=== PATIENT | male | born 1955 | race Caucasian/White ===

== ENCOUNTER → 2022-08-26 11:27 | Outpatient (CLI) | payer MEDICARE, SELFPAY ==
--- NOTE | ~2022-08-26 | CT_ITS ---
EXAMINATION: CT brain wo con DATE: 08/26/2022 11:45 INDICATION: Headache. TECHNIQUE: Computed tomography (CT) of the head was performed without intravenous contrast. The mA wa s adjusted according to patient size. Iterative reconstruction technique was employed. The dose-lengt h product was 674.51 mGy-cm. COMPARISON: None FINDINGS: There is no intracranial hemorrhage, acute infarction, or abnormal intracranial mass lesion . There are scattered areas of low attenuation in the cerebral white matter, which is within normal l imits for the patient's age. The ventricles are normal in size. There is mucosal thickening in the pa ranasal sinuses. There is thickening and sclerosis of the dalton of the maxillary sinuses. There are o ld fracture deformities of the nasal bones. The mastoid air cells are normal. IMPRESSION: 1. Normal aging brain. Reviewed, dictated and finalized at location A. IMPRESSION: 1. Normal aging brain.
== END ==
PROVIDERS: PCP Family Medicine; Visit Provider Physician Assistant Medical
DX: R51.9 Headache, unspecified (principal)
CPT/HCPCS: 70450

== ENCOUNTER → 2022-08-31 08:22 | Outpatient (CLI) | payer MEDICARE, SELFPAY ==
--- NOTE | ~2022-08-31 | US_ITS ---
EXAMINATION: US abdomen limited DATE: 08/31/2022 09:04 INDICATION: Elevated liver enzymes TECHNIQUE: Multiple grayscale and Doppler ultrasound images of the abdomen were obtained. COMPARISON: None FINDINGS: The pancreatic head and body are normal in appearance. The pancreatic tail is not visualized. Liver has normal echogenicity and contour, with a smooth surface. No liver lesion identified. No intrahepat ic biliary duct dilation suspected. Portal venous flow was seen in the hepatopetal, normal direction and has normal Doppler waveform. The gallbladder is normal in appearance. There is no cholelithiasis . The common bile duct measures 5 mm, which is normal. Sonographic Campbell sign was reported as negati ve by the kapok and cotton machine operator. Visualized portion of the proximal inferior vena cava is normal. IMPRESSION: 1. Normal right upper quadrant ultrasound. Reviewed, dictated and finalized at location A.
== END ==
PROVIDERS: PCP Family Medicine; Visit Provider Physician Assistant Medical
DX: R79.89 Other specified abnormal findings of blood chemistry (principal)
CPT/HCPCS: 76705

== ENCOUNTER 2022-11-21 16:37 | Emergency (ER) | payer MEDICARE, SELFPAY ==
--- NOTE | 2022-11-21 16:48 | ED.GENADULT ---
HPI - General Adult General Chief complaint: Upper Respiratory Infection Stated complaint: headache Time Seen by Provider: 11/21/22 16:47 Source: patient Mode of arrival: ambulatory Limitations: no limitations History of Present Illness HPI narrative: 57-year-old male patient presents to the [facility] with complaints of headache, fatigue and pressure to the face and head for the past week. Patient states he had something similar to this happened around [facility] and states that he had up getting the CT and was told that there was fluid and infection in the sinus cavities any is treated for sinus infection. Patient does have history of 3 sinus surgeries in the past. Patient states he used to get sinus infections a lot. Patient is on a daily antihistamine and has been taking Mucinex and Sudafed for the symptoms that within the past week. Patient states he has been running of low-grade temperature of around 99-100. Denies any productive cough, chest pain, shortness of breath or any other concerning symptoms. Related Data Allergies Allergy/AdvReac Type Severity Reaction Status Date / Time No Known Allergies Allergy Verified 11/21/22 16:57 Review of Systems Review of Systems: CONSTITUTIONAL: Denies fever, chills, or sweats. EYES: Denies visual changes, redness, or discharge. ENT: Denies rhinorrhea, congestion, sore throat, or otalgia. CARDIOVASCULAR: Denies chest pain, palpitations, or edema. RESPIRATORY: Denies cough or dyspnea. GASTROINTESTINAL: Denies abdominal pain, nausea, vomiting, or diarrhea. GENITOURINARY: Denies dysuria or hematuria. SKIN: Denies rash or itching. MUSCULOSKELETAL: Denies back pain, joint pain, or myalgia. NEUROLOGIC: Denies headache, numbness, or weakness. PSYCHIATRIC: Denies anxiety or depression. [facility] Past Medical History Medical History Chronic sinusitis Colon cancer screening Degenerative disc disease, cervical Impacted cerumen, right ear Mixed hyperlipidemia Obstructive sleep apnea Pre-diabetes Primary hypertension Situational anxiety Sleep apnea Family History Family History Mother Breast cancer Alzheimer disease Father No problems noted. Sibling Acute myocardial infarction Sibling Breast cancer Social History Social History (Reviewed 11/21/22 @ 17:21 by SOFIYA Olivo Social History: Quit over 20 years ago, 5 pack year Smoking status: Former smoker Tobacco type: cigarettes Second hand tobacco smoke exposure: Yes Alcohol intake: current Drinks per week: 3 Alcohol use details: 3 Beers a week on average Substance use: never Substance use type: does not use Lack of Transportation: No Lack of Food: Never True Current Housing: I Have Housing Concerned About Future Housing: No Difficulty Paying Gas/Electric Bills: No Difficulty Paying for Meds: No Currently Unemployed: No Education: High School Diploma/GED Difficulty w/ Childcare or Family Care: No Living arrangements: with family Occupation/Education: retired Gender identity (if verbalized by the patient): Male Sexual Orientation (if Verbalized by the Patient): Straight or Heterosexual Spiritual care concerns: No Agree to blood products: Yes Comments At the time of my signature I agree with nursing past medical history, surgical, social, and family history. There is no relevant family history pertinent to the presenting complaint. Exam Narrative: GENERAL: Well-appearing, well-nourished, and in no acute distress. HEAD: Normocephalic, atraumatic. Slight tenderness noted on frontal sinuses on palpation. EYES: PERRLA and EOMI. ENT: Nares clear, no rhinorrhea or epistaxis. Mucous membranes moist. Posterior pharynx no erythema, tonsillar enlargement, exudates or lesions present. Bilateral TMs are clear no erythema o
[2022-11-21 16:53] VITALS: BP 141/70; PULSE 100; RESP 18; TEMP 36.5; O2SAT 96
== END 2022-11-21 17:19 | disposition home or self-care (01) ==
PROVIDERS: Emergency Provider Nurse Practitioner Family; PCP Family Medicine
DX: J01.91 Acute recurrent sinusitis, unspecified (principal); R51.9 Headache, unspecified; Z87.891 Personal history of nicotine dependence; E78.2 Mixed hyperlipidemia; M50.30 Other cervical disc degeneration, unspecified cervical region; R73.03 Prediabetes; I10 Essential (primary) hypertension
CPT/HCPCS: 99213; G0463

== ENCOUNTER 2023-04-18 01:10 | Day surgery (SDC) | payer MEDICARE, SELFPAY ==
[2023-03-31 13:20] VITALS: BMI 32.3
--- NOTE | 2023-04-15 08:52 | SUR.PREOP ---
Patient called regarding upcoming procedure. Reviewed preop instructions, appointment times, and procedure prep.
--- NOTE | 2023-04-15 14:25 | PM.HPGS ---
History of Present Illness History of Present Illness Consent: Risks, benefits, and alternatives have been discussed and questions answered. Patient agrees to proceed with procedure. Chief complaint: hx of colon polyps Narrative: Low Juárez is a 68 year old male Referred for colon cancer screening. He has a history of a tubular adenoma removed over 5 years ago. Review of Systems Review of Systems: All systems reviewed & are unremarkable except as noted in HPI and below PMFSH Past Medical History Medical History Chronic sinusitis Colon cancer screening Degenerative disc disease, cervical Impacted cerumen, right ear Mixed hyperlipidemia Obstructive sleep apnea Pre-diabetes Primary hypertension Situational anxiety Sleep apnea Family History Family History Mother Breast cancer Alzheimer disease Father No problems noted. Sibling Acute myocardial infarction Sibling Breast cancer Social History Social History Social History: Quit over 20 years ago, 5 pack year Smoking packs per day: 0.25 Smoking cigarettes per day: 5.0 Years smoked: 15 Smoking pack-years: 3.75 Smoking status: Former smoker Tobacco type: cigarettes Second hand tobacco smoke exposure: Yes Alcohol intake: current Drinks per week: 4 Alcohol use details: 3 Beers a week on average Substance use: never Substance use type: does not use Lack of Transportation: No Lack of Food: Never True Current Housing: I Have Housing Concerned About Future Housing: No Difficulty Paying Gas/Electric Bills: No Difficulty Paying for Meds: No Currently Unemployed: No Education: High School Diploma/GED Difficulty w/ Childcare or Family Care: No Living arrangements: with family Occupation/Education: retired Gender identity (if verbalized by the patient): Male Sexual Orientation (if Verbalized by the Patient): Straight or Heterosexual Spiritual care concerns: No Agree to blood products: Yes Meds Home Medications and Allergies Home Medications Medication Instructions Recorded Confirmed Type lisinopril 10 mg tablet 10 mg PO DAILY #90 tabs 08/26/22 04/18/23 Rx sildenafil (pulm.hypertension) 20 20 mg PO ONCE PRN sexual activity 10/19/22 04/18/23 Rx mg tablet #30 tabs metformin 500 mg tablet 500 mg PO BID #180 tabs 11/10/22 04/18/23 Rx rosuvastatin 5 mg tablet 5 mg PO DAILY #90 tabs 12/30/22 04/18/23 Rx Allergies Allergy/AdvReac Type Severity Reaction Status Date / Time No Known Allergies Allergy Verified 04/18/23 06:21 Exam Const: General: alert Orientation/consciousness: patient oriented x3 Resp: Auscultation: clear to auscultation bilaterally Cardio: Rhythm: regular rhythm GI: GI Palp: Yes Soft to palpation and No Tenderness to palpation present (GI) Neuro: General: patient oriented x3 Assessment and Plan Assessment and plan (1) Colon cancer screening: Code(s): Z12.11 - Encounter for screening for malignant neoplasm of colon Status: Acute Assessment and Plan: Colonoscopy with possible biopsy or polypectomy or cautery or injection of substances.
[2023-04-18 06:15] VITALS: BP 147/77; PULSE 70; RESP 18; TEMP 35.8; O2SAT 98; BMI 33.0
[2023-04-18] MEDS: LACTATED RINGERS 1,000 ML 150 ML IV CONT (06:33)
[2023-04-18 06:35] LABS: Glucose Point of Care 110 mg/dl (65-105)
--- NOTE | 2023-04-18 07:18 | WPDANESEPPF ---
Anes - Initial Pre Proc Eval Procedure: Operation Date: 04/18/23 07:30 Proposed Procedures p Colonoscopy - Lee Tam MD Date/Time: 04/18/23 07:18 Surgeon: Lee Tam MD Pre Op Diagnosis: hx of colon polyps Patient Data Age: 68 Gender: M Height: 1.8 m Weight: 107.4 kg Last Vital Signs Temp 96.5 F L 04/18/23 06:15 Pulse 70 04/18/23 06:15 Resp 18 04/18/23 06:15 BP 147/77 H 04/18/23 06:15 Pulse Ox 98 04/18/23 06:15 O2 Del Method Room Air 04/18/23 06:15 Allergies Allergy/AdvReac Type Severity Reaction Status Date / Time No Known Allergies Allergy Verified 04/18/23 06:21 Home Medications Medication Instructions Recorded Confirmed Type lisinopril 10 mg tablet 10 mg PO DAILY #90 tabs 08/26/22 04/18/23 Rx sildenafil (pulm.hypertension) 20 20 mg PO ONCE PRN sexual activity 10/19/22 04/18/23 Rx mg tablet #30 tabs metformin 500 mg tablet 500 mg PO BID #180 tabs 11/10/22 04/18/23 Rx rosuvastatin 5 mg tablet 5 mg PO DAILY #90 tabs 12/30/22 04/18/23 Rx Laboratory Tests 04/18/23 06:27 POC Capillary Glucose 110 H mg/dl (65-105) Patient hx anesthesia problems: none Family hx anesthesia problems: none Results Review: All pre-operative results and documents have been reviewed as part of the pre-operative evaluation. [facility] Past Medical History Medical History Chronic sinusitis Colon cancer screening Degenerative disc disease, cervical Impacted cerumen, right ear Mixed hyperlipidemia Obstructive sleep apnea Pre-diabetes Primary hypertension Situational anxiety Sleep apnea Family History Family History Mother Breast cancer Alzheimer disease Father No problems noted. Sibling Acute myocardial infarction Sibling Breast cancer Social History Social History Social History: Quit over 20 years ago, 5 pack year Smoking packs per day: 0.25 Smoking cigarettes per day: 5.0 Years smoked: 15 Smoking pack-years: 3.75 Smoking status: Former smoker Tobacco type: cigarettes Second hand tobacco smoke exposure: Yes Alcohol intake: current Drinks per week: 4 Alcohol use details: 3 Beers a week on average Substance use: never Substance use type: does not use Lack of Transportation: No Lack of Food: Never True Current Housing: I Have Housing Concerned About Future Housing: No Difficulty Paying Gas/Electric Bills: No Difficulty Paying for Meds: No Currently Unemployed: No Education: High School Diploma/GED Difficulty w/ Childcare or Family Care: No Living arrangements: with family Occupation/Education: retired Gender identity (if verbalized by the patient): Male Sexual Orientation (if Verbalized by the Patient): Straight or Heterosexual Spiritual care concerns: No Agree to blood products: Yes Anes - Eval Final PreProcedure Day of Procedure 04/18/23 07:18 Patient weight: obese Heart: regular rate and rhythm Lungs: clear to auscultation Airway: Mallampati scale class II Neurological: alert and oriented Last oral intake: >/= 8 hours ASA classification: III Emergent: no Anesthetic plan: proceed Anesthesia type and monitoring: general GIVS and standard monitoring Results Review: All pre-operative results and documents have been reviewed as part of the pre-operative evaluation. Informed Consent: The patient's anesthetic plan and its attendant risks and benefits were discussed with the patient/family/POA. Questions were solicited and answers provided to the satisfaction of the patient/family/POA.
[2023-04-18 07:46] VITALS: BP 141/86; PULSE 82; RESP 18; O2SAT 98
[2023-04-18 07:56] VITALS: BP 129/85; PULSE 70; RESP 22; O2SAT 98
[2023-04-18 08:06] VITALS: BP 128/81; PULSE 61; RESP 16; O2SAT 98
== END 2023-04-18 08:14 | disposition home or self-care (01) ==
PROVIDERS: PCP Family Medicine; Visit Provider Internal Medicine Gastroenterology
PROC: 0DJD8ZZ Inspection of Lower Intestinal Tract, Via Natural or Artificial Opening Endoscopic (ICD-10-PCS; CPT 45378; principal; 2023-04-18 07:30)
DX: Z12.11 Encounter for screening for malignant neoplasm of colon (principal); K64.8 Other hemorrhoids; K57.30 Diverticulosis of large intestine without perforation or abscess without bleeding; I10 Essential (primary) hypertension; E78.2 Mixed hyperlipidemia; R73.03 Prediabetes; G47.33 Obstructive sleep apnea (adult) (pediatric); G47.30 Sleep apnea, unspecified; J32.9 Chronic sinusitis, unspecified; Z87.891 Personal history of nicotine dependence; F43.22 Adjustment disorder with anxiety; E66.9 Obesity, unspecified; Z68.33 Body mass index [BMI] 33.0-33.9, adult; Z86.010 Personal history of colon polyps; Z80.3 Family history of malignant neoplasm of breast; Z82.49 Family history of ischemic heart disease and other diseases of the circulatory system; Z79.84 Long term (current) use of oral hypoglycemic drugs
CPT/HCPCS: G0105; 82948; J2704; J7120

== ENCOUNTER 2024-03-13 14:48 | Emergency (ER) | payer MEDICARE, SELFPAY ==
--- NOTE | ~2024-03-13 | XR_ITS ---
EXAMINATION: XR chest 2V DATE: 03/13/2024 15:32 INDICATION: Cough. TECHNIQUE: Frontal and lateral views of the chest were obtained. COMPARISON: None. FINDINGS: There is no pneumonia, pleural effusion, or pneumothorax. The heart size is normal. IMPRESSION: 1. No acute cardiopulmonary disease. Reviewed, dictated and finalized at location B.
[2024-03-13 15:03] VITALS: BP 138/67; PULSE 92; RESP 16; TEMP 36.6; O2SAT 95
--- NOTE | 2024-03-13 15:20 | ED.URI ---
HPI - URI/Sore Throat General Chief Complaint: Upper Respiratory Infection Stated Complaint: congestion Time Seen by Provider: 03/13/24 15:20 Source: patient and RN notes reviewed Mode of arrival: ambulatory Limitations: no limitations History of Present Illness HPI Narrative: 68-year-old male presents with concern for productive cough, nasal congestion, chest congestion. Reports he had a similar sickness a few weeks ago that improved but now he is sick again. He reports he was better for about a week. He denies fever, body aches, chills, sweats. MD elicited complaint: cough Related Data Allergies Allergy/AdvReac Type Severity Reaction Status Date / Time No Known Allergies Allergy Verified 03/13/24 15:27 Review of Systems Review of Systems: CONSTITUTIONAL: Denies malaise, chills, sweats, or fever. EYES: Denies visual changes, redness, or discharge. ENT: Reports rhinorrhea, congestion. Denies sinus pain, otalgia and sore throat. CARDIOVASCULAR: Denies chest pain, palpitations, or edema. RESPIRATORY: Reports productive cough. Denies dyspnea. GASTROINTESTINAL: Denies abdominal pain, nausea, vomiting, diarrhea SKIN: Denies rash or itching. MUSCULOSKELETAL: Denies myalgia. NEUROLOGIC: Reports headache. All systems reviewed & are unremarkable except as noted in HPI and below PMFSH Past Medical History Medical History Chronic sinusitis Colon cancer screening Degenerative disc disease, cervical Impacted cerumen, right ear Mixed hyperlipidemia Obstructive sleep apnea Pre-diabetes Primary hypertension Situational anxiety Sleep apnea Family History Family History Mother Breast cancer Alzheimer disease Father No problems noted. Sibling Acute myocardial infarction Sibling Breast cancer Social History Social History Social History: Quit over 20 years ago, 5 pack year Smoking packs per day: 0.25 Smoking cigarettes per day: 5.0 Years smoked: 15 Smoking pack-years: 3.75 Smoking status: Former smoker Tobacco type: cigarettes Second hand tobacco smoke exposure: Yes Alcohol intake: current Drinks per week: 4 Alcohol use details: 3 Beers a week on average Substance use: never Substance use type: does not use Lack of Transportation: No Lack of Food: Never True Current Housing: I Have Housing Concerned About Future Housing: No Difficulty Paying Gas/Electric Bills: No Difficulty Paying for Meds: No Currently Unemployed: No Education: High School Diploma/GED Difficulty w/ Childcare or Family Care: No Living arrangements: with family Occupation/Education: retired Gender identity (if verbalized by the patient): Male Sexual Orientation (if Verbalized by the Patient): Straight or Heterosexual Spiritual care concerns: No Agree to blood products: Yes Comments At time of signature, agree with nursing past medical, surgical, social and family history. There is no relevant family history pertinent to the presenting complaint Exam Narrative: GENERAL: Well-appearing, well-nourished, and in no acute distress. HEAD: Normocephalic EYES: PERRLA, conjunctivae clear ENT: Nares clear. Mucous membranes moist. TM pearly ma with sharp light reflex bilaterally; no tragal tenderness. Oropharynx not erythematous without lesions. Tonsils not enlarged and without exudate, no drooling, no hoarseness, no trismus, uvula midline. NECK: Supple. No lymphadenopathy CHEST: Clear to auscultation, breath sounds equal. No wheezing, rhonchi, rales, or stridor. No respiratory distress, speaks in full sentences. Cough note HEART: Regular rate and rhythm. No murmur heard. SKIN: Warm, dry, no rash. NEURO: Alert and oriented x3. PSYCH: Normal mood and affect Course Course Emergency Course: Patient is aware of diagnosis, understands and agrees to treatment plan. Anticipatory guidance given. Patient agrees to follow-up as directed and is aware of reasons to seek care at the emergency department. Portions of this record may have been created with voice recognition software Level of Care: Express Care Visit Vital Signs Vital signs: Vital Signs Temperature 97.8 F 03/13/24 15:03 Pulse Rate 92 03/13/24 15:03 Respiratory Rate 16 03/13/24 15:03 Blood Pressure 138/67 03/13/24 15:03 Pulse Oximetry 95 03/13/24 15:03 Oxygen Delivery Room Air 03/13/24 15:03 Temperature 97.8 F 03/13/24 15:03 Pulse Rate 92 03/13/24 15:03 Respiratory Rate 16 03/13/24 15:03 Blood Pressure 138/67 03/13/24 15:03 Pulse Oximetry 95 03/13/24 15:03 Oxygen Delivery Room Air 03/13/24 15:03 Reviewed. MDM - URI/Sore Throat MDM Narrative Medical decision making narrative: Differential diagnosis considered: Puri virus, strep pharyngitis, allergic rhinitis, upper respiratory tract infection, sinusitis, rhinosinusitis, nasopharyngitis. viral pharyngitis, otitis media, otitis externa, pneumonia, bronchitis, viral cough syndrome, viral syndrome, and influenza. Exam findings show no acute concerns or changes; patient is non-toxic appearing and is in no distress. Patient is appropriate for outpatient treatment and follow-up. Lab Data Attestation: I reviewed the patient's lab results. Imaging Data My impression: Images reviewed, interpreted by radiologist, agree, see report. Radiologist's impression: EXAMINATION: XR chest 2V DATE: 03/13/2024 15:32 INDICATION: Cough. TECHNIQUE: Frontal and lateral views of the chest were obtained. COMPARISON: None. FINDINGS: There is no pneumonia, pleural effusion, or pneumothorax. The heart size is normal. IMPRESSION: 1. No acute cardiopulmonary disease. Critical Care Time Critical Care Time Critical Care Time: No Discharge Plan Discharge Clinical Impression: Bronchitis Patient Disposition: Home, Self-Care Condition: Stable Instructions: Acute Bronchitis (ED) Additional Instructions: Viral illness may last between 7-21 days; antibiotics do not cure viral illness and are NOT recommended at this time. Recommend antihistamine such as Benadryl at night time and Zyrtec or Aline during the day Cough syrup may cause drowsiness; avoid driving or take it at night time. Also, recommend symptomatic treatment includes: rest, fluids, and increase humidity of the air at home. Recommend Acetaminophen as directed on the bottle to reduce fever, pain, headache. Avoid smoking/second-hand smoke. Please schedule a follow-up visit with your personal physician for further evaluation and treatment within 3-5days. If your symptoms persist, change or worsen significantly before you can contact your personal physician then please, without delay, go to the emergency department for further evaluation. Prescriptions: New methylprednisolone [Medrol (Luciano)] 4 mg tablets,dose pack See Rx Instructions .ROUTE .COMPLEX Qty: 21 0RF Rx Instructions: orally per package directions dextromethorphan-guaifenesin [Mucinex DM] 60-1,200 mg tablet extended release 12 hr 1 tablet PO Q12H Qty: 12 0RF No Action sildenafil (pulm.hypertension) 20 mg tablet 20 mg PO ONCE PRN (Reason: sexual activity) Qty: 30 0RF Rx Instructions: administer doses at least 4-6 hours apart lisinopril 10 mg tablet 10 mg PO DAILY Qty: 90 3RF metformin 500 mg tablet 500 mg PO BID Qty: 180 3RF rosuvastatin 5 mg tablet 5 mg PO DAILY Qty: 90 1RF Follow-up/Referrals: Niurka Wallace MD [Primary Care Provider] - Time of Disposition: 15:42
== END 2024-03-13 15:45 | disposition home or self-care (01) ==
PROVIDERS: Emergency Provider Nurse Practitioner; PCP Family Medicine
DX: J40 Bronchitis, not specified as acute or chronic (principal); Z87.891 Personal history of nicotine dependence; E78.2 Mixed hyperlipidemia; I10 Essential (primary) hypertension; R73.03 Prediabetes; M50.30 Other cervical disc degeneration, unspecified cervical region
CPT/HCPCS: 71046; 99213; G0463

== ENCOUNTER 2024-12-18 13:48 | Outpatient (CLI) | payer MEDICARE, SELFPAY ==
--- OUTSIDE RECORDS SUMMARY | 2024-12-18 13:53 | XMS_ITS | Clinical Summary ---
Author Organization [facility] Address [address] [address] Care Team Providers Care Surgical Pathologist Name Role Phone Benito Sherwood Primary Care Provider Julito Cox DO Unavailable Source Comments [facility],non-owned Affiliates and Associated Physician Practices is amultiple site organization consisting of ambulatory clinics and hospital sitesin [place], [place], [place] and [place]. This disclosure is being madepursuant to the Care Everywhere program and may not contain all information available regarding this patient. Last updated 18.[facility] Allergies Active Allergy Reactions Criticality Noted Date Comments Erythromycin GI Discomfort 07/09/2020 Medications * Be aware that medications may not be up to date on this document. Alwaysverify current medications with the patient. 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 Gender Identity Not on file Sexual Orientation Not on file Last Filed Vital Signs Vital Sign Reading Time Taken Comments Blood Pressure 140/80 06/13/2019 3:52 PM BATCH AND FURNACE OPERATOR Pulse 87 06/13/2019 3:52 PM BATCH AND FURNACE OPERATOR Temperature 36.7 C (98.1 F) 06/13/2019 3:52 PM BATCH AND FURNACE OPERATOR Respiratory Rate 18 06/13/2019 3:52 PM BATCH AND FURNACE OPERATOR Oxygen Saturation 98% 06/13/2019 3:52 PM BATCH AND FURNACE OPERATOR Inhaled Oxygen Concentration - - Weight 108.4 kg (239 lb) 06/13/2019 3:52 PM BATCH AND FURNACE OPERATOR Height 180.3 cm (5' 11) 06/13/2019 3:52 PM BATCH AND FURNACE OPERATOR Body Mass Index 33.33 06/13/2019 3:52 PM BATCH AND FURNACE OPERATOR Plan of Treatment Health Maintenance Due Date Last Done Comments COLOGUARD (AGES 45-75) - COLON CA SCREENING 1957 COLON MONITORING 1957 COLONOSCOPY - COLON CA SCREENING 1957 CT COLONOGRAPHY - COLON CA SCREENING 1957 Colorectal Cancer Screening 1957 FIT - COLON CA SCREENING 1957 FLEX SIG - COLON CA SCREENING 1957 HEPATITIS C SCREENING 03/23/1975 DTAP/TDAP/TD VACCINES (1 - Tdap) 1976 PNEUMOCOCCAL VACCINE 50+ (1 of 2 - PCV) 1976 ZOSTER VACCINE (1 of 2) 2007 AAA SCREENING 2022 COVID-19 VACCINE (1 - season) 2024 DEPRESSION SCREENING 05/16/2024 INFLUENZA VACCINE (#1) 2025 0, 02/25/2018, 03/10/2017, Additional history exists Respiratory Syncytial Virus (RSV) Vaccine Pt: or over 60 yrs (1 - 1-dose 75+ series) 2032 HEPATITIS B VACCINE Aged Out No longe r eligible based on patient's age to complete this topic HIB VACCINE Aged Out No longer eligi ble based on patient's age to complete this topic HPV VACCINE Aged Out No longer eligi ble based on patient's age to complete this topic MENINGOCOCCAL (Group B) VACCINE SHARED DECISION-MAKING Aged Out No longer eligible based on patient's age to complete this topic MENINGOCOCCAL GROUPS A/C/Y/W VACCINE Aged Out No longer eligible based on patient's age to complete this topic Insurance [employer] Care Teams Surgical Pathologist Relationship Specialty Start Date End Date Benito Sherwood Update Information PCP - General 06/13/19 Julito Godwin DO Update Information Hand Surgery 07/09/20
== END 2024-12-18 13:49 | disposition home or self-care (01) ==
LOC: ANHAUDIO 13:48
PROVIDERS: PCP Family Medicine; Visit Provider Otolaryngology
DX: H90.3 Sensorineural hearing loss, bilateral (principal); R42 Dizziness and giddiness; H93.13 Tinnitus, bilateral; H74.8X1 Other specified disorders of right middle ear and mastoid; Z82.2 Family history of deafness and hearing loss
CPT/HCPCS: 92557; 92567

== ENCOUNTER 2025-01-16 11:02 | Emergency (ER) | payer MEDICARE, SELFPAY ==
[2025-01-16 11:12] VITALS: BP 137/79; PULSE 70; RESP 16; TEMP 36.3; O2SAT 100
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
== END 2025-01-16 11:50 | disposition home or self-care (01) ==
PROVIDERS: Emergency Provider Nurse Practitioner Family
DX: S16.1XXA Strain of muscle, fascia and tendon at neck level, initial encounter (principal); I10 Essential (primary) hypertension; Z87.891 Personal history of nicotine dependence; X58.XXXA Exposure to other specified factors, initial encounter
CPT/HCPCS: 99213; G0463

== ENCOUNTER 2025-01-22 14:49 | Outpatient (CLI) | payer MEDICARE, SELFPAY ==
--- NOTE | ~2025-01-22 | XR_ITS ---
Wrist Indication: Comparison: Technique: Findings: No fracture or dislocation. Soft tissues and joint spaces intact. Impression: 1. No acute process. EXAMINATION: [id number], 01/22/2025 14:55 CDT HISTORY: M54.2 - Cervicalgia COMPARISON: No comparisons available. Technique: 3 views Findings: The vertebral heights are intact. No fracture or subluxation. The disc heights are intact. Soft tissues unremarkable Impression: No acute abnormality. Reviewed, dictated and finalized at location A. Impression: 1. No acute process. EXAMINATION: [id number], 01/22/2025 14:55 CDT HISTORY: M54.2 - Cervicalgia COMPARISON: No comparisons available. Technique: 3 views Findings: The vertebral heights are intact. No fracture or subluxation. The disc heights are intact. Soft tissues unremarkable Impression: No acute abnormality.
--- OUTSIDE RECORDS SUMMARY | 2025-01-22 16:18 | XMS_ITS | Clinical Summary ---
Author Organization [facility] Address [address] [place] [address] Care Team Providers Care Conventions Reservationist Name Role Phone Benito Sherwood Primary Care Provider Julito Cox DO Unavailable [phone] Source Comments [facility],non-owned Affiliates and Associated Physician Practices is amultiple site organization consisting of ambulatory clinics and hospital sitesin [place], [place], [place] and [place]. This disclosure is being madepursuant to the Care Everywhere program and may not contain all information available regarding this patient. Last updated 18.[facility] Allergies Active Allergy Reactions Criticality Noted Date [...] on file Legal Sex Male 6:20 AM [employer] Gender Identity Not on file Sexual Orientation Not on file Last Filed Vital Signs Vital Sign Reading Time Taken Comments Blood Pressure 140/80 06/13/2019 3:52 PM [employer] [employer] Pulse 87 06/13/2019 3:52 PM [employer] [employer] Temperature 36.7 C (98.1 F) 06/13/2019 3:52 PM [employer]ICE Respiratory Rate 18 06/13/2019 3:52 PM [employer] [employer] Oxygen Saturation 98% 06/13/2019 3:52 PM [employer]ICE Inhaled Oxygen Concentration - - Weight 108.4 kg (239 lb) 06/13/2019 3:52 PM [employer] Height 180.3 cm (5' 11) 06/13/2019 3:52 PM [employer] Body Mass Index 33.33 06/13/2019 3:52 PM [employer] Plan of Treatment Health Maintenance Due Date [...] (1 of 2) 2007 AAA SCREENING 2022 DEPRESSION SCREENING 05/16/2024 COVID-19 VACCINE (1 - 2023- season) 2025 INFLUENZA VACCINE (#1) 2025 0, 02/25/2018, 03/10/2017, [...] complete this topic Insurance [employer] Care Teams Conventions Reservationist Relationship Specialty Start Date End Date Benito Sherwood Update Information PCP - General 06/13/19 Julito Godwin DO Update Information Hand Surgery 07/09/20
== END 2025-01-22 14:50 | disposition home or self-care (01) ==
PROVIDERS: PCP Family Medicine; Visit Provider Student in an Organized Health Care Education/Training Program
DX: M54.2 Cervicalgia (principal)
CPT/HCPCS: 72040